=== PATIENT | male | born 1990 | race Caucasian/White ===

== ENCOUNTER 2023-04-07 16:04 | Inpatient (IN) | payer BC ==
[2023-04-07] MEDS ORDERED: Sodium Chloride 0.9% 10 ML Syringe FLUSH PRN (16:06)
[2023-04-07] MEDS ORDERED: Ketorolac 30 MG/ML SDV IVPUSH ONE (16:14)
[2023-04-07] MEDS ORDERED: Sodium Chloride 0.9% 2,000 ML IV SCH (16:15)
[2023-04-07] MEDS ORDERED: Ondansetron 4 MG/2 ML SDV IV ONE (16:16)
[2023-04-07] MEDS ORDERED: Ondansetron 4 MG/2 ML SDV ONE (16:18)
[2023-04-07] MEDS ORDERED: Ketorolac 30 MG/ML SDV ONE (16:18)
[2023-04-07] MEDS: Diatrizoate Meglumine/Diatrizoate Sodium 37% 30 ML Bottle PO ONE ×2 (18:15→20:36)
[2023-04-07] MEDS: Iopamidol 755 Mg/ML 100 ML Bottle IV ONE ×2 (18:50→20:38)
[2023-04-07] MEDS ORDERED: NS + KCl 20mEq/L 1,000 ML IV SCH (19:00)
[2023-04-07] MEDS ORDERED: Sodium Chloride 0.9% 50 ML IV SCH (19:15)
[2023-04-07] MEDS ORDERED: Morphine 2 MG/ML SYRINGE IVPUSH ONE (19:36)
[2023-04-07] MEDS ORDERED: LORazepam 2 MG/ML SDV IVPUSH ONE (19:36)
[2023-04-07] MEDS ORDERED: Ondansetron 4 MG/2 ML SDV IVPUSH PRN (20:30)
[2023-04-07] MEDS ORDERED: Sodium Chloride 0.9% 1,000 ML IV SCH (21:00)
[2023-04-11] MEDS: Diatrizoate Meglumine/Diatrizoate Sodium 37% 30 ML Bottle PO ONE (08:25)
== END 2023-04-07 21:30 | DRG 247 ==
LOC: KA.MS 16:04
PROVIDERS: ADMIT Nurse Practitioner Family; ATTEND Nurse Practitioner Family
DX: K56.600 Partial intestinal obstruction, unspecified as to cause (principal); E87.1 Hypo-osmolality and hyponatremia; E86.0 Dehydration; I10 Essential (primary) hypertension; G89.29 Other chronic pain; K21.9 Gastro-esophageal reflux disease without esophagitis; E83.51 Hypocalcemia; Z79.899 Other long term (current) drug therapy; Z88.0 Allergy status to penicillin; Z98.890 Other specified postprocedural states; Z88.8 Allergy status to other drugs, medicaments and biological substances
CPT/HCPCS: 36415; 71045; 74177; 83605; J1885; J2060; J2270; J2405; J3480; J3490; J7030; J7040; Q9963; Q9967

== ENCOUNTER 2024-10-18 20:41 | Emergency (ER) | payer BC ==
[2024-10-18] MEDS ORDERED: Sodium Chloride 0.9% 10 ML Syringe FLUSH PRN (20:58)
[2024-10-18 21:09] LABS: BASOPHILS ABSOLUTE AUTO 0.04 10^3/uL (0.00-0.10); BASOPHILS PERCENT AUTO 0.4 % (0.0-1.0); EOSINOPHILS ABSOLUTE AUTO 0.13 10^3/uL (0.10-0.30); EOSINOPHILS PERCENT AUTO 1.3 % (1.0-3.0); HEMATOCRIT 48.6 % (40.0-52.0); HEMOGLOBIN 16.7 g/dL (13.0-17.0); IMMATURE GRAN ABSOLUTE AUTO 0.03 10^3/uL (0.00-0.04); IMMATURE GRAN PERCENT AUTO 0.3 % (0.0-0.4); LYMPHOCYTES ABSOLUTE AUTO 2.87 10^3/uL (1.00-4.00); LYMPHOCYTES PERCENT AUTO 29.1 % (20.0-40.0); MEAN CORPUSCULAR HEMOGLOBIN 32.1 pg (27.0-31.0); MEAN CORPUSCULAR HGB CONC 34.4 g/dL (32.0-36.0); MEAN CORPUSCULAR VOLUME 93.5 fL (82.0-92.0); MEAN PLATELET VOLUME 10.5 fL (7.4-10.4); MONOCYTES ABSOLUTE AUTO 1.03 10^3/uL (0.10-0.80); MONOCYTES PERCENT AUTO 10.5 % (2.0-8.0); NEUTROPHILS ABSOLUTE AUTO 5.75 10^3/uL (2.50-7.00); NEUTROPHILS PERCENT AUTO 58.4 % (50.0-70.0); PLATELET COUNT,PLT 282 10^3/uL (150-400); RED CELL DISTRIBUTION WIDTH 13.1 % (11.5-14.5); WHITE BLOOD CELL COUNT,WBC 9.85 10^3/uL (5.00-10.00)
[2024-10-18 21:26] LABS: ALANINE AMINOTRANSFERASE,ALT 32 U/L (14-63); ALBUMIN 3.86 g/dL (3.40-5.00); ALKALINE PHOSPHATASE 94 U/L (46-116); ANION GAP 11.4 mmol/L (5-15); ASPARTATE AMNIOTRANSFERASE,AST 19 U/L (15-37); BILIRUBIN TOTAL 0.5 mg/dL (0.2-1.0); BLOOD UREA NITROGEN,BUN 12 mg/dL (7-18); CALCIUM 8.6 mg/dL (8.7-10.3); CHLORIDE,CL 101 mmol/L (98-107); CREATININE 1.12 mg/dL (0.51-1.17); EST CRCL DRUG DOSING (CG) 92.06 mL/min; GLUCOSE RANDOM 104 mg/dL (70-140); POTASSIUM,K 4.4 mmol/L (3.5-5.1); PROTEIN TOTAL,TP 7.5 g/dL (6.4-8.2); SODIUM,NA 138 mmol/L (136-145)
[2024-10-18 21:28] LABS: ESTIMATED GFR 88 mL/min (>=60)
== END 2024-10-18 21:56 | disposition home or self-care (01) ==
LOC: KA.ED 20:41
DX: R55 Syncope and collapse (principal); I10 Essential (primary) hypertension; F17.210 Nicotine dependence, cigarettes, uncomplicated; Z88.0 Allergy status to penicillin; Z91.048 Other nonmedicinal substance allergy status; Z79.52 Long term (current) use of systemic steroids; Z79.899 Other long term (current) drug therapy
CPT/HCPCS: 36415; 70450; 71045; 80053; 84484; 85025; 93010; 99284